=== PATIENT | male | born 1965 | race Caucasian/White ===

== ENCOUNTER 2017-03-14 05:29 | Emergency (ER) | payer OTHER ==
[~2017-03-14] VITALS: Ht 185.4 cm; Wt 95.5 kg
[~2017-03-14 05:29] MED LIST: ASPIRIN; LOSARTAN
[2017-03-14 05:30] VITALS: Ht 185.4 cm; Wt 95.5 kg
--- NOTE | 2017-03-14 06:27 | ERD ---
ER Documentation Chief Complaint Date/Time DATE: 03/14/17 TIME: 06:17 Chief Complaint FEVER, SORE THROAT, AND FLU-LIKE SX X 1 WEEK HPI This pleasant 51-year-old male patient presents to emergency department today for evaluation of pharyngitis. Patient reports 5 day history of sore throat with exudate, difficulty swallowing solid foods. patient reports a 5 pound weight loss since sore throat started, he is able to swallow liquids with pain. Patient reports fever, body aches, chills. Denies difficulty talking, swallowing his own saliva, or rash. Patient states that he tried to get in to see his primary care physician but there was no appointment available within the next 5 days. Patient has been using [id number] Tylenol, Motrin, Chloraseptic spray for symptomatic relief with minimal relief of symptoms. ROS All systems reviewed and are negative except as per history of present illness. Medications Home Meds Reported Medications [Aspirin] No Conflict Check 06/10/16 [Losartan] No Conflict Check 06/10/16 Allergies Allergies: Coded Allergies: No Known Drug Allergies (Verified Allergy, Unknown, 01/19/16) PMhx/Soc History of Surgery: No Anesthesia Reaction: No Hx Neurological Disorder: No Hx Respiratory Disorders: No Hx Cardiac Disorders: Yes (HYPERTENSION) Hx Psychiatric Problems: No Hx Miscellaneous Medical Probl: No Hx Alcohol Use: No Hx Substance Use: No Hx Tobacco Use: No Smoking Status: Never smoker Physical Exam Vitals Vital Signs Date Time Temp Pulse Resp B/P Pulse Ox O2 Delivery O2 Flow Rate FiO2 03/14/17 05:30 97.3 89 16 121/92 98 Vitals stable, triage notes reviewed Physical Exam Const: No acute distress Head: Atraumatic Eyes: Normal Conjunctiva, PERRLA, EOMI ENT: Right tympanic membrane doppled, erythemic, nonfluctuating, left tympanic membrane translucent, nasal mucosa edematous, turbinates +2 mucus noted , septum midline without bleeding points, pharynx bright angry red, tonsils +2, right tonsillar exudate, tongue is midline, uvula rises and falls with pronation Neck: Full range of motion. Right cervical chain node Resp: Clear to auscultation bilaterally, no rales wheezes or rhonchi Cardio: Regular rate and rhythm, no murmurs Abd: Soft, no epigastric tenderness Skin: No petechiae or rashes Back: Ext: Neur: Awake and alert Psych: Normal Mood and Affect Procedures/MDM This pleasant 51-year-old male patient reports a 5 day history of sore throat, difficulty swallowing solid foods, tolerating liquids, fever body aches, chills. Patient has been treating with [id number] analgesic with minimal relief of symptoms. Tonsillar abscess is not suspected, physical exam findings consistent with strep pharyngitis Centor score is 51-53% probability of strep pharyngitis and otitis media. Patient will be treated with Augmentin 875 mg twice daily 10 days. Continue symptomatic care with Tylenol Motrin and Chloraseptic spray, salt water gargles, return to emergency department for worsening of symptoms, inability to swallow, fever not responding to medication. I feel the patient is stable for discharge and outpatient management with primary care physician. I have discussed results, examination findings, the treatment plan with the patient and family present prior to discharge. Indications for emergent reevaluation, side effects of medication were also discussed. All questions were answered. Patient verbalizes understanding and agrees with plan of care. Departure Diagnosis: Primary Impression: Strep pharyngitis Additional Impression: Otitis media Otitis media type: suppurative Laterality: right Chronicity: unspecified Qualified Code: H66.41 - Suppurative otitis media of right ear, unspecified chronicity Patient Instructions: Otitis Media, Abx Tx (Adult), Pharyngitis, Strep ( Presumed) Additional Instructions: Thank you for for coming to [facility] for your care today. Please ask your nurse or provider if you have questions about your care today and do not leave until all your questions have been answered. Please use any medications given as directed and follow-up with your doctor (or the doctor you were referred to) in the next 2-3 days. If you do not have a primary care doctor you may follow up at the community hospital (listed below). You may also use motrin and tylenol as needed for fever and/or pain unless instructed otherwise by your provider or nurse. Indications for more urgent follow-up have been discussed, but you may return to the Emergency Department at ANY time for any worrisome or worsening symptoms. If you have abdominal pain, please know that no test or exam you received is perfect and you should follow up within 8 hours for continued pain. If you had any imaging studies today, such as an X-Ray or CT Scan, these studies will be reviewed later by a radiologist. You will be called if there are important findings that were not identified today, so make sure the contact information you provided at registration is correct. If you received any narcotic pain control medicine today, such as Vicodin, Morphine or Dilaudid, your coordination and judgment may be affected for a number of hours. Please do not drive or operate heavy machinery, and you may want someone to assist you at home. If you were given a prescription for narcotic medication, be aware that it is very addictive- use sparingly and only if necessary. IGOR WHITE March 14, 2017 06:27
[2017-03-14] MEDS ORDERED: AMOX1TAB10 PO (06:28)
== END 2017-03-14 06:46 | disposition home or self-care (01) ==
LOC: FTE 05:29
DX: J02.0 Streptococcal pharyngitis (principal); H66.41 Suppurative otitis media, unspecified, right ear; I10 Essential (primary) hypertension
CPT/HCPCS: 99283

== ENCOUNTER 2018-12-20 20:51 | Inpatient (IN) | payer OTHER ==
[~2018-12-20] VITALS: Ht 185.4 cm; Wt 95.6 kg
[~2018-12-20 20:51] MED LIST changes: +AMOX1TAB10 PO
[2018-12-20] MEDS ORDERED: SOD CHLORIDE 0.9% 500 ML IV STA (22:35)
[2018-12-20] MEDS ORDERED: morphine 4 MG/ML VIAL IV STA (22:35)
[2018-12-20] MEDS ORDERED: ONDANSETRON 4 MG INJ IV STA (22:35)
[2018-12-21] MEDS ORDERED: CEFTRIAXONE 1 GM/50 ML (PMX) 50 ML IVPB ONE (01:00)
[2018-12-21] MEDS ORDERED: morphine 4 MG/ML VIAL IV STA (01:22)
[2018-12-21] MEDS ORDERED: ONDANSETRON 4 MG INJ IV PRN (02:00)
[2018-12-21] MEDS ORDERED: HYDROCODONE/APAP (5/325) TAB PO PRN (02:00)
[2018-12-21] MEDS ORDERED: morphine 2 MG INJ IV PRN (02:00)
[2018-12-21] MEDS ORDERED: NACL 0.9% 3 ML SYG IV SCH (02:00)
[2018-12-21] MEDS ORDERED: DOCUSATE SODIUM 100 MG CAP PO PRN (02:00)
[2018-12-21] MEDS ORDERED: BISACODYL (EC) 5 MG TAB PO PRN (02:00)
[2018-12-21] MEDS ORDERED: ACETAMINOPHEN 325 MG TAB PO PRN (02:00)
--- NOTE | 2018-12-21 02:07 | HP ---
Date/Time of Note Date/Time of Note DATE: 12/21/18 TIME: 02:07 Assessment/Plan VTE Prophylaxis SCD applied (from Nsg): Yes Pharmacological prophylaxis: NA/contraindicated Pharm contraindication: low risk/ambulating Lines/Catheters IV Catheter Type (from Nrsg): Saline Lock Assessment/Plan Hospital Course This is a 53-year-old male being admitted to the [facility] floor for: #1 symptomatic nephrolithiasis: CT scan shows a 4 mm stone at the distal ureter, as well as to 2 mm nonobstructing stone in the kidney. Also mild hydronephrosis. Creatinine is mildly elevated at 1.3. At the current time will provide aggressive IV fluid hydration with normal saline. Flomax twice daily, will strain the urine. KUB in the a.m. He did receive ceftriaxone in the ED however his urinalysis does not have any leukoesterase or nitrites white blood cell count is normal and he is afebrile, I will hold off on giving him any further antibiotics at the current time. Urology has been consulted by the ED. Pain control with Dilaudid. #2 JESSIKA with mild hydronephrosis: Creatinine is 1.31. At the current time will hydrate the patient normal saline, will hold off on giving him any DONNA or ARB. Will monitor renal function closely. Avoid nephrotoxic agents. #3 hypertension: He apparently is on an DONNA or ARB at home but we will hold off on this at the current time given his mild JESSIKA. Will start him on Norvasc at the current time and titrate up as needed. #4 DVT GI prophylaxis: SCDs, no GI prophylaxis indicated Further treatment strategy will be implemented as per the clinical course. Result Diagram: 12/20/18224912/20/182249 Results 24hrs Laboratory Tests Test 12/20/18 22:50 White Blood Count 9.4 Red Blood Count 4.56 L Hemoglobin 14.2 Hematocrit 42.0 Mean Corpuscular Volume 92.1 Mean Corpuscular Hemoglobin 31.1 Mean Corpuscular Hemoglobin Concent 33.8 Red Cell Distribution Width 11.7 Platelet Count 203 Mean Platelet Volume 10.5 #H Immature Granulocytes % 0.200 Neutrophils % 84.1 H Lymphocytes % 9.7 L Monocytes % 5.5 Eosinophils % 0.2 Basophils % 0.3 Nucleated Red Blood Cells % 0.0 Immature Granulocytes # 0.020 Neutrophils # 7.9 H Lymphocytes # 0.9 Monocytes # 0.5 Eosinophils # 0.0 Basophils # 0.0 Nucleated Red Blood Cells # 0.0 Sodium Level 144 Potassium Level 3.7 Chloride Level 105 Carbon Dioxide Level 30 Anion Gap 9 Blood Urea Nitrogen 19 Creatinine 1.31 H Est Glomerular Filtrat Rate mL/min 57 L Glucose Level 148 Calcium Level 10.0 Total Bilirubin 0.3 Direct Bilirubin 0.00 Indirect Bilirubin 0.3 Aspartate Amino Transf (AST/SGOT) 32 Alanine Aminotransferase (ALT/SGPT) 28 Alkaline Phosphatase 77 Total Protein 8.0 Albumin 4.5 Globulin 3.50 H Albumin/Globulin Ratio 1.28 Lipase 91 HPI/ROS Admit Date/Time Admit Date/Time Hx of Present Illness Chief complaint: Left flank pain times 1 day This is a 53-year-old male with a past medical history of nephrolithiasis and hypertension who presented to the emergency department complaining of left flank pain. Patient reports that he has a history of kidney stones. He reports that he started feeling pain at the left flank which now has again to radiate to the anterior lower abdomen. He denies any chest pain or nausea vomiting. Reports a temperature of 99 at home. Denies any urinary frequency urgency or dysuria. Allergies: NKDA Medications: See Jan Const: As per HPI Eyes : No pain discharge or redness or change in visual acuity ENT: No pain, sore throat, congestion, congestion, dysphagia or discharge Respiratory: No shortness of breath, cough, sputum, wheezing, or pleuritic pain Cardiovascular: No chest pain, palpitation, PND, or edema GI : no change in appetite, abdominal pain, nausea, vomiting, diarrhea, constipation, or change in the color his stool Genitourinary: As per HPI Musculoskeletal: No joint pain, back pain, neck pain, restricted range of motion in neck or joints Skin: No rash, bruising or hives Neuro: No headache, dizziness, syncope, seizure, focal weakness Endocrine: No polyuria, polydipsia, temperature intolerance Psych: No hallucination, depression, anxiety or suicidal ideation PMH/Family/Social Past Medical History Nephrolithiasis, hypertension Coded Allergies: No Known Drug Allergies (Verified Allergy, Unknown, 01/19/16) Past Surgical History Past Surgical Hx: no surgical history Family History Significant Family History: no pertinent family hx Social History Alcohol Use: none Smoking Status: Never smoker Drug Use: none Exam/Review of Systems Vital Signs Vitals Vital Signs Date Temp Pulse Resp B/P (MAP) Pulse Ox O2 O2 Flow FiO2 Time Delivery Rate 12/21/18 93 12 164/113 96 Room Air 00:00 (130) 12/20/18 98.5 21:04 Exam Exam General: Patient is currently lying in bed he is reporting pain starting to come again in his left lower abdomen, he does appear to be in mild discomfort HEENT: Atraumatic, normocephalic. The pupils are equal, round and reactive. Extraocular motor are intact Neck: Supple with full range of motion. No rigidity or meningismus Chest: Nontender Lungs: Clear to auscultation bilaterally no crackles rales or wheezing Heart: Normal S1-S2, Regular rhythm and rate. Abdomen: Soft, tenderness palpation over the left lower abdomen, mild CVA tenderness palpation, normal bowel sounds. Extremities: Normal to inspection, no edema no cyanosis Neurologic: Normal mental status, speech normal, cranial nerves II through XII are intact, motor and sensory are intact, Additional Comments PROCEDURE: CT Abdomen and Pelvis without contrast. CLINICAL INDICATION: Abdominal pain TECHNIQUE: CT scan of the abdomen and pelvis without contrast was performed on a multidetector high-resolution CT scanner. The patient was scanned without intravenous contrast. Coronal and sagittal reformatted images were obtained from the axial source images. Images were reviewed on a high-resolution PACS workstation. The total exam CTDI equals 13.44 mGy and the total exam DLP equals 927.83 mGy-cm. One or more the following dose reduction techniques were utilized: Automated exposure control, adjustment of the mA and / or kV according to patient's size, or use of iterative reconstruction technique. DICOM images are available. COMPARISON: CT 01/19/2016 FINDINGS: Minimal dependent atelectasis at posterior lung bases. Linear atelectasis/fibrosis at the lung bases. No pneumoperitoneum is seen. 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 No abnormalities seen in the liver. The gallbladder is mildly contracted. This is nonspecific and could be due to nonfasting state. Food material/debris and air seen in the stomach. No abnormalities seen in the spleen, pancreas, adrenals. There is appearance of the minimal nonobstructing calcification in the right kidney which could be vascular calcification. Calcification in abdominal aorta and iliac arteries. No abdominal aortic aneurysm is seen. No biliary dilatation is seen. The left kidney is larger than on the previous study. There has been interval increase in left perinephric soft tissue stranding. There are 2 approximate 2 mm nonobstructing calculi in the left kidney. There is mild left hydronephrosis appearing since previous study. There is mild left perinephric fluid appearing since previous study. There is left periureteral soft tissue stranding appearing since previous study. There is an approximate 4 mm calculus in the distal left ureter appearing since previous study. Moderate enlargement of prostate with impression on the posterior inferior bladder is again seen. Small bilateral inguinal hernias containing fat only again seen. No ascites is seen. Several diverticula in transverse and ascending colon. There is no specific evidence of acute diverticulitis seen. There is an unremarkable appendix. No dilated small bowel loops are seen. No enlarged lymph nodes are seen in the abdomen or pelvis. Small scattered likely bone islands again seen. Minimal degenerative changes at sacroiliac joints. Minimal degenerative enthesopathy in thoracolumbar spine. There is appearance of a transitional L5 vertebra with partial sacralization on the left. IMPRESSION: 4 mm calculus in distal left ureter with mild left hydronephrosis, small amount of left perinephric fluid, increased left perinephric soft tissue stranding, left periureteral soft tissue stranding appearing since previous study and the left kidney is larger than on the previous study. 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 2 approximate 2 mm nonobstructing calculi in left kidney as well. Moderate enlargement of prostate with impression on the posterior inferior bladder again seen. Small bilateral inguinal hernias containing fat only again seen. Please see above. RPTAT: HJES .Luciano Chopra MD, Date Time Electronically viewed and signed by .Luciano Chopra MD, MD on 12/21/2018 00:12 .S/ CC: OLIVIA LINTON [id number] MEREDITH GRANDE Dec 21, 2018 02:07
[2018-12-21] MEDS ORDERED: HYDROmorphONE 1 MG/ML SYG IV PRN ×2 (02:30→05:00)
[2018-12-21] MEDS ORDERED: hydrALAzine 20 MG INJ IV ONE (04:00)
[2018-12-21] MEDS: SOD CHLORIDE 0.9% 1,000 ML IV SCH ×3 (04:49→12:23)
[2018-12-21] MEDS ORDERED: AMLODIPINE 2.5 MG TAB PO ONE ×2 (05:00→07:30)
[2018-12-21] MEDS: TAMSULOSIN (SR) 0.4 MG CAP PO SCH ×2 (05:29→20:47)
[2018-12-21 05:37] VITALS: Ht 185.4 cm; Wt 95.6 kg
--- NOTE | 2018-12-21 06:59 | NUR ---
Pt is a new admission. Belongings checked; no belongings missing. Pt is alert and oriented x4. He is able to ambulate. Pt complained of pain. PRN pain medication given as ordered. Vital signs stable, except for BP. aware. Dr. Avila came a few minutes ago to see the pt, and he explained to him that he is going to hold the losartan that pt usually takes at home daily. Pt aware his urine will be strained. Pt is refusing SCDs; aware. Will continue monitoring pt.
[2018-12-21 08:26] VITALS: BP 117/69; PULSE 96; RESP 18
[2018-12-21 14:32] VITALS: BP 134/79; PULSE 81; RESP 18
--- NOTE | 2018-12-21 15:17 | PN ---
Date/Time of Note Date/Time of Note DATE: 12/21/18 TIME: 15:12 Assessment/Plan VTE Prophylaxis Risk score (from [facility] [place])>0 risk: 1 SCD applied (from [facility] [place]): No SCD contraindicated: other Pharmacological prophylaxis: heparin Lines/Catheters IV [facility] Peripheral IV Urinary Cath still in place: No Assessment/Plan Hospital Course S: Patient having less flank pain now. Tolerating diet. O: VS - see below PE: General:lying in bed, in mild distress HEENT: Atraumatic, normocephalic. The pupils are equal, round and reactive. Extraocular motor are intact Neck: Supple with full range of motion. No rigidity or meningismus Chest: Nontender Lungs: Clear to auscultation bilaterally no crackles rales or wheezing Heart: Normal S1-S2, Regular rhythm and rate. Abdomen: Soft, tenderness palpation over the left lower abdomen, mild CVA tenderness palpation, normal bowel sounds. Extremities: Normal to inspection, no edema no cyanosis Neurologic: No focal deficits A/P: 53-year-old male being admitted to the [facility] floor for: #1 symptomatic nephrolithiasis: CT scan shows a 4 mm stone at the distal ureter, as well as to 2 mm nonobstructing stone in the kidney. Also mild hydronephrosis. Creatinine is mildly elevated at 1.3. -Continue aggressive IV fluid hydration with normal saline. -Continue Flomax twice daily, will strain the urine. -Continue pain control medications, get urology consult #2 JESSIKA with mild hydronephrosis: Creatinine is 1.31. - At the current time will hydrate the patient normal saline, will hold off on giving him any DONNA or ARB. - Will monitor renal function closely. - Avoid nephrotoxic agents. #3 hypertension: He apparently is on an DONNA or ARB at home. - we will hold off on this at the current time given his mild JESSIKA. Will start him on Norvasc at the current time and titrate up as needed. #4 DVT GI prophylaxis: SCDs, no GI prophylaxis indicated Further treatment strategy will be implemented as per the clinical course Result Diagram: 12/20/18 2250 12/20/18 2250 Results 24hrs Laboratory Tests Test 12/20/18 22:50 White Blood Count 9.4 Red Blood Count 4.56 L Hemoglobin 14.2 Hematocrit 42.0 Mean Corpuscular Volume 92.1 Mean Corpuscular Hemoglobin 31.1 Mean Corpuscular Hemoglobin Concent 33.8 Red Cell Distribution Width 11.7 Platelet Count 203 Mean Platelet Volume 10.5 #H Immature Granulocytes % 0.200 Neutrophils % 84.1 H Lymphocytes % 9.7 L Monocytes % 5.5 Eosinophils % 0.2 Basophils % 0.3 Nucleated Red Blood Cells % 0.0 Immature Granulocytes # 0.020 Neutrophils # 7.9 H Lymphocytes # 0.9 Monocytes # 0.5 Eosinophils # 0.0 Basophils # 0.0 Nucleated Red Blood Cells # 0.0 Sodium Level 144 Potassium Level 3.7 Chloride Level 105 Carbon Dioxide Level 30 Anion Gap 9 Blood Urea Nitrogen 19 Creatinine 1.31 H Est Glomerular Filtrat Rate mL/min 57 L Glucose Level 148 Calcium Level 10.0 Total Bilirubin 0.3 Direct Bilirubin 0.00 Indirect Bilirubin 0.3 Aspartate Amino Transf (AST/SGOT) 32 Alanine Aminotransferase (ALT/SGPT) 28 Alkaline Phosphatase 77 Total Protein 8.0 Albumin 4.5 Globulin 3.50 H Albumin/Globulin Ratio 1.28 Lipase 91 Exam/Review of Systems Exam Vitals Vital Signs Date Temp Pulse Resp B/P (MAP) Pulse Ox O2 O2 Flow FiO2 Time Delivery Rate 12/21/18 98.4 81 18 134/79 94 Room Air 14:32 (97) Results Results 24hrs Laboratory Tests Test 12/20/18 22:50 White Blood Count 9.4 Red Blood Count 4.56 L Hemoglobin 14.2 Hematocrit 42.0 Mean Corpuscular Volume 92.1 Mean Corpuscular Hemoglobin 31.1 Mean Corpuscular Hemoglobin Concent 33.8 Red Cell Distribution Width 11.7 Platelet Count 203 Mean Platelet Volume 10.5 #H Immature Granulocytes % 0.200 Neutrophils % 84.1 H Lymphocytes % 9.7 L Monocytes % 5.5 Eosinophils % 0.2 Basophils % 0.3 Nucleated Red Blood Cells % 0.0 Immature Granulocytes # 0.020 Neutrophils # 7.9 H Lymphocytes # 0.9 Monocytes # 0.5 Eosinophils # 0.0 Basophils # 0.0 Nucleated Red Blood Cells # 0.0 Sodium Level 144 Potassium Level 3.7 Chloride Level 105 Carbon Dioxide Level 30 Anion Gap 9 Blood Urea Nitrogen 19 Creatinine 1.31 H Est Glomerular Filtrat Rate mL/min 57 L Glucose Level 148 Calcium Level 10.0 Total Bilirubin 0.3 Direct Bilirubin 0.00 Indirect Bilirubin 0.3 Aspartate Amino Transf (AST/SGOT) 32 Alanine Aminotransferase (ALT/SGPT) 28 Alkaline Phosphatase 77 Total Protein 8.0 Albumin 4.5 Globulin 3.50 H Albumin/Globulin Ratio 1.28 Lipase 91 Medications Medication Current Medications Sodium Chloride 1,000 ml @ 150 mls/hr Q6H40M IV Last administered on 12/21/18at 12:23; Admin Dose 150 MLS/HR; Start 12/21/18 at 01:59 IV Flush (NS 3 ml) 3 ml PER PROTOCOL IV ; Start 12/21/18 at 02:00 Ondansetron HCl (Zofran Inj) 4 mg Q6H PRN IV NAUSEA/VOMITING Last administered on 12/21/18at 02:53; Admin Dose 4 MG; Start 12/21/18 at 02:00 Acetaminophen (Tylenol Tab) 650 mg Q6H PRN PO .PAIN 1-3 OR TEMP; Start 12/21/18 at 02:00 Acetaminophen/ Hydrocodone Bitart ([place] (5/325)) 1 tab Q6H PRN PO .MOD PAIN 4- 6 Last administered on 12/21/18at 04:50; Admin Dose 1 TAB; Start 12/21/18 at 02:00 Docusate Sodium (Colace) 100 mg Q12H PRN PO .CONSTIPATION; Start 12/21/18 at 02:00 Bisacodyl (Dulcolax) 5 mg DAILY PRN PO .CONSTIPATION; Start 12/21/18 at 02:00 Tamsulosin HCl (Flomax) 0.4 mg HS PO Last administered on 12/21/18at 05:29; Admin Dose 0.4 MG; Start 12/21/18 at 02:00 Hydralazine HCl (Apresoline) 10 mg Q4H PRN PO ELEVATED BLOOD PRESSURE; Start 12/21/18 at 04:00 Amlodipine Besylate (Norvasc) 5 mg DAILY PO ; Start 12/22/18 at 09:00 Hydromorphone HCl (Dilaudid) 0.5 mg Q4H PRN IV SEVERE PAIN LEVEL 7-10; Start 12/21/18 at 17:00; Status GAURAV LITTLEJOHN Dec 21, 2018 15:17
[2018-12-21] MEDS ORDERED: HYDROmorphONE 0.5 MG/0.5 ML SYG IV PRN (17:00)
--- NOTE | 2018-12-21 18:58 | NUR ---
RN NOTES PT IS STABLE, NO C/O PAIN, ALL URINE STRAINED, NO STONES FOUND. PT IS ON HYDRATION WITH IVF. CALL LIGHT WITHIN REACH, ENCOURAGED PT TO CALL FOR ASSISTANCE.
[2018-12-21 19:50] VITALS: BP 148/91; PULSE 89; RESP 18
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
[2018-12-21] MEDS ORDERED: HEPARIN 5,000 UNIT/1 ML VIAL SC SCH (21:00)
--- NOTE | 2018-12-21 21:30 | NUR ---
upon endorsement pt verbalized he wants to speak w/ Dr Yeung as he was waiting all day for the doctor to talk to him. He was no longer in pain and he wants to be discharged. Around 2029 Dr Yeung came and spoke w/ the pt. pt aware that per urology standpoint he is ok to be discharged. left message to hospitalist. and when finally primary rn was able to get hold of Dr kearney, informed him pt wants to be discharge and from urology standpoint ok for d/c. per dr Kearney he spoke w/ Dr Yeung and Dr Hinojosa. and Dr Hinojosa told him that he will discharge the pt in am, but he does not know the reason why Dr Hinojosa will discharge pt in am. IF pt insists to go home then he will be discharged as AMA. Primary RN informed the pt , and pt was upset telling the nurse that we are keeping him for no reason at all as he was no longer in pain and DR Yeung told him he was ok to go home. Primary RN informed charge nurse of the situation and the latter talked to the pt.
--- NOTE | 2018-12-21 22:45 | NUR ---
Patient refusing to wait to speak to MD. Patient told about the risks and consequences involved in leaving the hospital at this time, the benefits of continued treatment and hospitalization, and the alternatives of continued treatment. Patient states "i have things to do at home tonight. I need to go and unless the doctor comes to see me right now i am leaving." Informed the patient that the nursing mineral wool insulation supervisor is speaking to MD to see if we could discharge him tonight. Patient refused to wait. patient pulled out his IV and refused to allow RN to place dressing. Pt states "it isn't bleeding. 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 all belongings returned to patient and patient escorted downstairs to ER exit. Endorsed to JAMSHID Jenkins. JAMSHID Jenkins, notified Dr. Briceno. Nursing Poly Area Supervisor updated.
--- NOTE | 2018-12-22 08:02 | DS ---
Date/Time of Note Date/Time of Note DATE: 12/22/18 TIME: 08:01 Discharge Summary Admission/Discharge Info Admit Date/Time Dec 21, 2018 at 00:48 Discharge Date/Time Dec 21, 2018 at 22:55 Discharge Diagnosis Pt left AMA Patient Condition: Serious Hospital Course S: Patient having less flank pain now. Tolerating diet. O: VS - see below PE: General:lying in bed, in mild distress HEENT: Atraumatic, normocephalic. The pupils are equal, round and reactive. Extraocular motor are intact Neck: Supple with full range of motion. No rigidity or meningismus Chest: Nontender Lungs: Clear to auscultation bilaterally no crackles rales or wheezing Heart: Normal S1-S2, Regular rhythm and rate. Abdomen: Soft, tenderness palpation over the left lower abdomen, mild CVA tenderness palpation, normal bowel sounds. Extremities: Normal to inspection, no edema no cyanosis Neurologic: No focal deficits A/P: 53-year-old male being admitted to the [facility] floor for: #1 symptomatic nephrolithiasis: CT scan shows a 4 mm stone at the distal ureter, as well as to 2 mm nonobstructing stone in the kidney. Also mild hydronephrosis. Creatinine is mildly elevated at 1.3. -Continue aggressive IV fluid hydration with normal saline. -Continue Flomax twice daily, will strain the urine. -Continue pain control medications, get urology consult #2 JESSIKA with mild hydronephrosis: Creatinine is 1.31. - At the current time will hydrate the patient normal saline, will hold off on giving him any DONNA or ARB. - Will monitor renal function closely. - Avoid nephrotoxic agents. #3 hypertension: He apparently is on an DONNA or ARB at home. - we will hold off on this at the current time given his mild JESSIKA. Will start him on Norvasc at the current time and titrate up as needed. #4 DVT GI prophylaxis: SCDs, no GI prophylaxis indicated Further treatment strategy will be implemented as per the clinical course Home Meds Active Scripts Amoxicillin/Potassium Clav (Amox-Clav 875-125 mg Tablet) 875-125 mg Tab, 1 TAB PO BID for 10 Days, #20 TAB Prov:CHRISTOPHER,IGOR 03/14/17 Reported Medications [Aspirin] No Conflict Check 8/1/16 [Losartan] No Conflict Check 06/10/16 Primary Care Provider [facility] Time spent on discharge: < 30 minutes GAURAV RAMON Dec 22, 2018 08:02
[2018-12-22] MEDS ORDERED: AMLODIPINE 5 MG TAB PO SCH (09:00)
== END 2018-12-21 22:55 | disposition home or self-care (01) | DRG 694 ==
LOC: E/R 20:51 → PP2 12-21 00:48
PROVIDERS: ADMIT Family Medicine; ATTEND Hospitalist
DX: N13.2 Hydronephrosis with renal and ureteral calculous obstruction (principal); N17.9 Acute kidney failure, unspecified; I10 Essential (primary) hypertension
CPT/HCPCS: 74018; 74176; 80053; 81001; 83690; 84153; 84154; 85025; J0360; J0696; J1170; J1644; J2270; J2405; J7030; J7040